=== PATIENT | male | born 1995 | race Two or more races ===

== ENCOUNTER 2025-02-27 12:51 | Emergency (ER) | payer MEDICAID, SELFPAY ==
[2025-02-27 12:52] VITALS: BMI 27.3
[2025-02-27 12:58] VITALS: BP 150/97; PULSE 96; RESP 18; TEMP 37.2; O2SAT 98
--- NOTE | 2025-02-27 12:58 | XR_ITS ---
Examination: Abdomen sonogram, Limited Date and time of exam: February 27, 2025 1321 hours INDICATIONS: Vomiting beginning 2 days ago Technique: Real-time floyd scale transabdominal sonographic images of the upper abdomen obtained. Findings: Cholelithiasis, gallbladder wall 0.3 cm no edema Common bile duct 0.3 cm Pancreatic head 2.7 cm Liver 21.3 cm fatty infiltration Normal hepatopedal portal venous flow Patent IVC IMPRESSION: Cholelithiasis, negative for cholecystitis Significant hepatomegaly, fatty liver
--- NOTE | 2025-02-27 12:58 | XR_ITS ---
Examination: CT abdomen and pelvis without contrast. Coronal 3-D reconstructions. Sagittal 2-D reconstructions. Date and time of exam:February 27, 2025 1310 hours INDICATIONS: Onset left lower abdominal pain and nausea beginning 3 days ago CTDI: vol (mGy): 8.26 DLP: (mGycm): 519 Technique: Axial images of the abdomen have been obtained, 3 mm slice thickness Intravenous contrast material has not been administered. Low dose protocols were performed. One or more of the following dose reduction techniques were used; automated exposure control, adjustment of the mA and/or KV according to patient size, use of iterative reconstruction technique. Findings: Marked hepatomegaly 25 cm with diffuse fatty infiltration Splenomegaly AP dimension 14.5 cm Contracted gallbladder with small gallstones No pancreatic or adrenal mass No renal or ureteral calculi No hydronephrosis Aorta normal size No bowel obstruction Normal appendix No diverticulitis No bladder mass or bladder calculi No prostatomegaly Intact osseous structures IMPRESSION: Significant hepatosplenomegaly Diffuse fatty infiltration throughout the liver Contracted gallbladder with cholelithiasis
--- NOTE | 2025-02-27 12:59 | PD.EDRME ---
Rapid Medical Screening Exam RME Arrival date/time: 02/27/25 12:51 29-year-old male presents emergency room today for complaint of abdominal pain nausea vomiting Chief Complaint: Abdominal Pain Time Seen by Provider: 02/27/25 12:58
[2025-02-27] MEDS: ONDANSETRON ODT 4 MG TABRAP PO (13:32)
[2025-02-27 13:48] LABS: Collection Type, Urine Clean Catch; Squamous Epithelial Cell,Urine 0 /hpf (0-5); WBC,Urine 0 /hpf (0-5)
[2025-02-27 13:48] LABS: Basophils # (Auto) 0.1 Thou/mm3 (0.0-0.2); Basophils % (Auto) 0 % (0-2.5); Eosinophils # (Auto) 0.2 Thou/mm3 (0.0-0.5); Eosinophils % (Auto) 1 % (0-10); Hematocrit 44.5 % (41.0-53.0); Hemoglobin 16.2 g/dL (13.5-16.0); Immature Granulocytes % (Auto) 0 % (0-0); Immature Granulocytes Auto 0.05 Thou/mm3 (0.00-0.00); Lymphocytes # (Auto) 1.4 Thou/mm3 (1.0-4.8); Lymphocytes % (Auto) 10 % (10-50); Mean Corpuscular HGB Conc 36.4 g/dl (31.0-37.0); Mean Corpuscular Hemoglobin 33.8 pg (25.0-35.0); Mean Corpuscular Volume 93 fL (80-100); Monocytes # (Auto) 0.9 Thou/mm3 (0.0-0.8); Monocytes % (Auto) 7 % (0-12); Neutrophils % (Auto) 81 % (37-80); Nucleated Red Blood Cell % 0 /100 WBC (0); Platelet Count 223 Thou/mm3 (140-440); RDW Standard Deviation 40.8 fL (35.1-43.9); White Blood Count 13.5 Thou/mm3 (3.8-10.6)
[2025-02-27 13:55] LABS: Bacteria,Urine Rare; Bilirubin,Urine Negative (Negative); Blood,Urine Negative (Negative); Clarity,Urine Clear (Clear/Hazy); Color,Urine Lt-Yellow (Lt Yel-Yel); Culture Indicated,Urine Not Indicated; Glucose, Urine Negative (Negative); Ketones,Urine Negative (Negative); Leukocyte Esterase,Urine Negative (Negative); Nitrite,Urine Negative (Negative); PH,Urine 6.5 (5.0-7.0); Protein,Urine Negative (Neg - Trace); RBC,Urine 2 /hpf (0-3); Specific Gravity,Urine 1.005 (1.001-1.035); Urobilinogen,Urine Negative mg/dL (0.0-1.0)
[2025-02-27 14:05] LABS: Alanine Aminotransferase 77 U/L (10-49); Albumin, Serum 4.4 gm/dL (3.5-5.0); Albumin/Globulin Ratio 1.4 (1.2-2.2); Alkaline Phosphatase 184 U/L (46-116); Anion Gap 18 (7-16); Aspartate Amino Transferase 147 U/L (0-34); BUN/Creatinine Ratio 8 Ratio (12-20); Bilirubin,Total 1.6 mg/dL (0.3-1.2); Blood Urea Nitrogen < 5 mg/dL (9-23); Carbon Dioxide 27.1 mMol/L (20.0-31.0); Chloride 97 mMol/L (98-107); Creatinine (Component) 0.6 mg/dL (0.6-1.3); Estimated Creatinine Clearance 178.9 mL/min (>60); Globulin 3.2 gm/dL (2.3-3.5); Glucose 116 mg/dL (74-106); Lipase 41 U/L (12-53); Osmolality,Calculated 281 (275-295); Potassium 3.8 mMol/L (3.4-5.1); Sodium 142 mMol/L (136-145); Total Protein 7.6 gm/dL (5.7-8.2); eGFR > 60 See Note
[2025-02-27 17:57] VITALS: BP 129/88; PULSE 91; RESP 18; O2SAT 99
--- NOTE | 2025-02-27 17:58 | EDNOTE_ITS ---
ED Abdominal Pain RME/HPI General Chief Complaint: Abdominal Pain Stated complaint: ABD. PAIN AND VOMITING Time seen by provider: 02/27/25 12:58 Arrival date/time: 02/27/25 12:51 29-year-old male with no known medical history presents to the emergency room with chief complaint of right upper quadrant abdominal pain and vomiting x 3 days Source: patient Mode of arrival: ambulatory Limitations: no limitations RME / HPI RME / HPI narrative: 02/27/25 12:51 29-year-old male presents emergency room today for complaint of abdominal pain nausea vomiting Related Data Previous Rx's ?Medication ?Instructions ?Recorded ondansetron 4 mg disintegrating 4 mg PO Q8H #10 tabs 0 06/26/24 tablet hydrocodone 5 mg-acetaminophen 325 1 tab PO BID PRN pa in #10 tabs 02/27/25 mg tablet ondansetron 4 mg disintegrating 4 mg PO Q8H PRN nausea and 02/27/25 tablet vomiting #14 tabs Allergies Allergy/AdvReac Type Severity Reaction Status Date / Time No Known Allergies Allergy Verified 02/27/25 12:54 Review of Systems Review of Systems Systems Reviewed: All systems reviewed, normal except as documented Constitutional Constitutional: Reports system reviewed and no additional complaints, except as documented, Denies fatigue, Denies fever(s), Denies headache(s) and Denies weakness Eyes Eyes: Reports system reviewed and no additional complaints, except as documented, Denies blurry vision and Denies change in vision ENT Ears, Nose, Mouth, and Throat: Reports system reviewed and no additional complaints, except as documented, Denies otalgia, Denies headache(s), Denies nasal congestion, Denies throat swelling and Denies vertigo Cardiovascular Cardiovascular: Reports system reviewed and no additional complaints, except as documented, Denies chest pain, Denies dyspnea and Denies dyspnea on exertion Respiratory Respiratory: Reports system reviewed and no additional complaints, except as documented, Denies chest congestion, Denies cough, Denies dyspnea, Denies dyspnea on exertion and Denies wheezing Gastrointestinal Gastrointestinal: Reports system reviewed and no additional complaints, except as documented, Reports abdominal pain, Reports cramping, Reports nausea and Denies vomiting Genitourinary Genitourinary: Reports system reviewed and no additional complaints, except as documented, Denies dysuria and Denies hematuria Musculoskeletal Musculoskeletal: Reports system reviewed and no additional complaints, except as documented and Denies back pain Integumentary/Breasts Skin/Breast: Reports system reviewed and no additional complaints, except as documented and Denies wounds Neurologic Neurologic: Reports system reviewed and no additional complaints, except as documented, Denies confusion, Denies headache(s), Denies lack of coordination, Denies vertigo and Denies weakness Psychiatric Psychiatric: Reports system reviewed and no additional complaints, except as documented, Denies anxiety, Denies confusion, Denies depression, Denies paranoia, Denies suicidal ideation and Denies tactile hallucinations Endocrine Endocrine: Reports system reviewed and no additional complaints, except as documented and Denies fatigue Hematologic/Lymphatic Hematologic/Lymphatic: Reports system reviewed and no additional complaints, except as documented and Denies lymphadenopathy Allergic/Immunologic Allergic/Immunologic: Reports system reviewed and no additional complaints, except as documented, Denies throat swelling, Denies urticaria and Denies wheezing Past Medical History Past Medical History CARDIAC: Negative Congestive Heart Failure RESPIRATORY: Negative Chronic Obstructive Pulmonary Disease (COPD) GENITOURINARY: Negative Renal Disease ENDOCRINE: Negative Diabetes Mellitus Type 1 or Diabetes Mellitus Type 2 Social History SMOKING STATUS: Never smoker ED Exam General Limitations: Present no limitations General appearance: Present alert and in no apparent distress Head Head exam: Present atraumatic Eye Eye exam: Present normal appearance, PERRL and EOMI ENT ENT exam: Present normal exam, normal oropharynx and mucous membranes moist Neck Neck exam: Present normal inspection, full ROM and trachea midline Chest Chest inspection: Present normal inspection and symmetric chest wall rise Respiratory Respiratory exam: Present normal lung sounds bilaterally Cardiovascular Cardiovascular exam: Present regular rate, normal rhythm and normal heart sounds Abdominal Exam Abdominal exam: Present soft, tenderness and normal bowel sounds; Absent distention, guarding or rebound Abdominal tenderness: Present RUQ and mild Extremities Exam Extremities exam: Present normal inspection and full ROM Back Exam Back exam: Present normal inspection and full ROM Neurological Exam Neurological exam: Present alert, oriented X3 and CN II-XII intact Psychiatric Psychiatric exam: Present normal affect and normal mood Skin Skin exam: Present warm, dry, intact and normal color Course Quality Measures none Orders Category Date Time Status CT abdomen pelvis wo con Stat Exams 02/27/25 12:58 Completed US gall bladder Stat Exams 02/27/25 12:58 Completed CBC Stat Lab 02/27/25 13:31 Completed Comprehensive Metabolic Panel Stat Lab 02/27/25 13:31 Completed Lipase Stat Lab 06/03/25 13:31 Completed UA, C/S IF [Urinalysis, C/S if Indicated] Stat Lab 02/27/25 13:42 Completed Ondansetron Odt [Zofran Odt] Med 02/27/25 12:58 Discontinued 4 mg PO X1 ONE Vital Signs Vital signs: Vital Signs Temperature 99.0 F 02/27/25 12:58 Pulse Rate 96 02/27/25 12:58 Respiratory Rate 18 02/27/25 12:58 Blood Pressure 150/97 H 02/27/25 12:58 Pulse Oximetry (%) 98 02/27/25 12:58 Oxygen Delivery Method Room Air 02/27/25 12:58 O2 saturation 98% within normal limits Abdominal Pain MDM MDM Narrative MDM Narrative:: 29-year-old male with no known medical history presents to the emergency room with chief complaint of right upper quadrant abdominal pain and vomiting x 3 days Patient is hemodynamically stable in no apparent distress Physical examination shows right upper quadrant abdominal pain and tenderness. During my reevaluation the patient does not have any tenderness anymore and there is a negative Lindo sign. Patient states his only symptom during my reevaluation is nausea. The patient has not vomited since he has been here. Ultrasound of the gallbladder was completed and shows cholelithiasis but no cholecystitis CBC CMP are within normal limits Patient was discharged and educated to follow-up with primary care provider in the next 24 to 48 hours and return to the emergency room for any evidence of worsening signs or symptoms Patient data External records reviewed:: [facility] previous records Clinical information provided by:: patient Social determinants that could affect healthcare access:: none Patient has the following chronic illnesses:: No chronic illness How is presenting disease/condition affected by chronic disease/condition?: no chronic disease Evaluation data The following diagnostics were reviewed and interpreted by me:: lab results and radiology exam(s) Lab and/or radiology exams considered but not ordered:: Labs and radiology exams considered and ordered Interpretation Summary: Ultrasound gallbladder-Findings: Cholelithiasis, gallbladder wall 0.3 cm no edema Common bile duct 0.3 cm Pancreatic head 2.7 cm Liver 21.3 cm fatty infiltration Normal hepatopedal portal venous flow Patent IVC IMPRESSION: Cholelithiasis, negative for cholecystitis Significant hepatomegaly, fatty liver Medications / Prescriptions Medications or Prescriptions considered but not ordered:: Medication given Medication administrations:: Medication Administration History Discontinued Medications Ondansetron HCl (Ondansetron Odt 4 Mg Tabrap) 4 mg PO X1 ONE; Protocol Stop: 02/27/25 12:59 Last Admin: 02/27/25 13:32 Dose: 4 mg Documented By: Medication given Consultations Consultation(s) initiated? (list below): No Diagnosis Differential diagnosis abdominal pain: abdominal pain, acute appendicitis, constipation, gastroenteritis, small bowel obstruction and other (Cholelithiasis/cholecystitis) Most likely diagnosis given after review of the tests above:: Cholelithiasis Admission Indicated Admission indicated?: not indicated Admission Request Was there a request for admission?: No Disposition Plan Disposition Plan: Discharge Discharge Attestation Discharge Attestation: The patient and all family members were given an opportunity to ask questions and understood the discharge instructions. Discharge instructions specifically effects, indications for sooner follow up or return to the emergency department, and the expected course of current diagnosis. Patient condition: Stable Discharge Plan Plan Patient Disposition: HOME (Self Care) Discharge Disposition comment: Stable Prescriptions/Referrals Prescriptions/Med Rec: New hydrocodone-acetaminophen 5-325 mg tablet 1 tab PO BID MDD 10mg PRN (Reason: pain) Qty: 10 0RF ondansetron 4 mg tablet,disintegrating 4 mg PO Q8H PRN (Reason: nausea and vomiting) Qty: 14 0RF No Action ondansetron 4 mg tablet,disintegrating 4 mg PO Q8H Qty: 10 0RF Referrals: No Primary/Family,Physician [Primary Care Provider] - In 1 week Problem List Clinical Impression: Cholelithiasis Patient/Caregiver Discharge Instructions Education Materials: ED Gallstones with Biliary Colic Additional Instructions: Por favor, consulte con fuentes m?dico de cabecera en las pr?ximas 24 a 48 horas. Fuentes ecograf?a de ves?cula biliar mostr? c?lculos biliares. Deber? consultar con fuentes m?dico de cabecera para que lo derive a un cirujano general para patty extirpaci?n ambulatoria de la ves?cula. Si observa alg?n empeoramiento de los signos o s?ntomas, acuda a urgencias de inmediato. El medicamento fue enviado a fuentes farmacia; rec?jalo y t?nguyen seg?n las indicaciones. Print Language: Peruvian Stand Alone Forms: Little Award Info., Patient Portal Info Letter PA/AMBULATORY CARE COORDINATOR Supervising Physician PA/AMBULATORY CARE COORDINATOR Supervising Physician: Dr Walker
== END 2025-02-27 17:58 | disposition home or self-care (01) ==
PROVIDERS: Nurse Practitioner Primary Care; Emergency Provider Emergency Medicine
DX: K80.20 Calculus of gallbladder without cholecystitis without obstruction (principal); K76.0 Fatty (change of) liver, not elsewhere classified
CPT/HCPCS: 36415; 74176; 76705; 80053; 81001; 83690; 85025; 99284; Q0162

== ENCOUNTER 2025-07-04 06:57 | Emergency (ER) | payer MEDICAID, SELFPAY ==
[2025-07-04 06:57] VITALS: BMI 31.8
--- NOTE | 2025-07-04 07:02 | EDNOTE_ITS ---
<Statement entered by Tonia Ambrocio MD - 07/18/25 14:08> I, Tonia Ambrocio MD, have reviewed the history, exam, and assessment of the patient. I have evaluated the patient independently and agree with the plan of care documented by [ ]. All diagnostic studies were reviewed and discussed. I confirm the diagnosis as documented by the Resident. I was present during the Medical Decision Making for this patient. The patient's plan of care was created between myself and the Resident and consistent with our discussion of the patient's case. ED General RME/HPI General Chief complaint: Nausea/Vomiting/Diarrhea Stated complaint: N/V/D Time Seen by Provider: 07/04/25 07:02 Arrival date/time: 07/04/25 06:57 RME / HPI RME / HPI narrative: Home is a 30 y/o male with PMHx of cholelithiasis comes in for an evaluation of abdominal pain, onset 2 days ago with associated nausea and vomiting, episodes of vomiting include 3 times, described as yellow, has happened to him before. Patient reports that his symptoms had been progressively worsening and he recently for the past 4 days have been drinking for 24 ounce beer cans. He has been drinking like this for about 10 years. He denies any bloody vomiting, or blood in his stool. He says that he was recently seen in February for similar symptoms. He does endorse a history of gallstones, however has not had surgery for it or has any abdominal surgeries as well. Says he works in the [employer]. He denies his abdominal pain rating to his back. Denies any drug use, however does endorse his drinking history. Is not a smoker. No other complaints at this time. Related Data Previous Rx's ?Medication ?Instructions ?Recorded ondansetron 4 mg disintegrating 4 mg PO Q8H #10 tabs 0 06/26/24 tablet hydrocodone 5 mg-acetaminophen 325 1 tab PO BID PRN pa in #10 tabs 02/27/25 mg tablet ondansetron 4 mg disintegrating 4 mg PO Q8H PRN nausea and 02/27/25 tablet vomiting #14 tabs ondansetron 4 mg disintegrating 4 mg PO Q8H PRN nausea and 07/04/25 tablet vomiting 2 weeks #14 tabs pantoprazole 40 mg tablet,delayed 40 mg PO QDAY 2 week s #14 tabs 07/04/25 release (Protonix) Allergies Allergy/AdvReac Type Severity Reaction Status Date / Time No Known Allergies Allergy Verified 02/27/25 12:54 Review of Systems Review of Systems Narrative Review of Systems: 12 point ROS reviewed and is otherwise negative unless stated directly in the HPI ED Exam Narrative Physical exam: General: AAOx3, in mild distress HEENT: Moist mucous membranes, conjunctiva clear, EOMI, PERRLA, Cardiovascular: S1, S2, radial pulses +2 bilat, RRR Pulmonary: CTAB bilat no cough, no wheezing GI: Mild tenderness to palpitation in epigastric and RUQ, no guarding, 3x3 linear area that appears scaly and erythematous that could represent contact dermaitits, no rigidity, rebound tenderness or distension Extremities: No presence of trace or pitting edema in lower extremities bilaterally, dorsalis pedis pulses +2 bilaterally Neuro: AAOx3, no focal motor or sensory deficits in the UE or LE bilat Psych: Good judgement, thought and behavior Course Quality Measures none Orders Category Date Time Status EKG (ED ONLY) *Do not use* NOW Care 07/04/25 07:19 Completed Insert IV NOW Care 07/04/25 07:19 Active Miscellaneous Nursing Order NOW Care 07/04/25 08:55 Active EKG (ED Only) Stat Exams 07/04/25 07:19 Draft US abdomen limited Stat Exams 07/04/25 07:34 Completed XR abdomen 1V Stat Exams 07/04/25 09:29 Completed Alcohol, Blood Medical Stat Lab 07/04/25 07:45 Completed CBC Stat Lab 07/04/25 07:45 Completed CMP [Comprehensive Metabolic Panel] Stat Lab 07/04/25 07:45 Completed Drug Screen,Urine Stat Lab 07/04/25 07:37 Completed INR [Prothrombin Time with INR] Stat Lab 07/04/25 07:45 Completed Lactic Acid [Lactate (Lactic Acid)] Stat Lab 07/04/25 07:45 Completed Lipase Stat Lab 07/04/25 07:45 Completed Mag [Magnesium] Stat Lab 07/04/25 07:45 Completed PTT [Partial Thromboplastin Time] Stat Lab 07/04/25 07:45 Completed Urinalysis, C/S if Indicated Stat Lab 07/04/25 07:37 Completed Morphine* Inj Med 07/04/25 07:18 Discontinued 4 mg IVP X1 ONE Ondansetron Inj [Zofran Inj] Med 07/04/25 08:31 Discontinued 4 mg IVP X1 ONE Pantoprazole Inj [Protonix Inj] Med 07/04/25 08:53 Discontinued 40 mg IVP X1 ONE Vital Signs Vital signs: Vital Signs Temperature 97.5 F 07/04/25 07:03 Pulse Rate 96 07/04/25 07:03 Respiratory Rate 17 07/04/25 07:03 Blood Pressure 159/93 H 07/04/25 07:03 Pulse Oximetry (%) 97 07/04/25 07:03 Oxygen Delivery Method Room Air 07/04/25 07:03 Discharge Plan Plan Patient Disposition: HOME (Self Care) Prescriptions/Referrals Prescriptions/Med Rec: New pantoprazole [Protonix] 40 mg tablet,delayed release (DR/EC) 40 mg PO QDAY 14 Days Qty: 14 0RF Rx Instructions: Take one tablet by mouth before breakfast ondansetron 4 mg tablet,disintegrating 4 mg PO Q8H PRN (Reason: nausea and vomiting) 14 Days Qty: 14 0RF Rx Instructions: Dissolve one tablet by mouth up to three times a day as needed No Action ondansetron 4 mg tablet,disintegrating 4 mg PO Q8H Qty: 10 0RF hydrocodone-acetaminophen 5-325 mg tablet 1 tab PO BID MDD 10mg PRN (Reason: pain) Qty: 10 0RF ondansetron 4 mg tablet,disintegrating 4 mg PO Q8H PRN (Reason: nausea and vomiting) Qty: 14 0RF Referrals: No Primary/Family,Physician [Primary Care Provider] - In 1 week Problem List Clinical Impression: Gastritis Patient/Caregiver Discharge Instructions Additional Instructions: Discharge instructions Follow-up with your PCP within 1 week Take your Protonix as prescribed Use Zofran as needed for nausea and vomiting Avoid drinking EtOH Return to ED if your symptoms worsen or return Instrucciones para el tony: Consulte con [facility]son m?dico de cabecera en el plazo de patty semana [place] Protonix seg?n lo prescrito Use Zofran seg?n sea necesario para las n?useas y los v?mitos Evite beber EtOH Regrese a urgencias si los s?ntomas empeoran o reaparecen Print Language: Georgian Stand Alone Forms: Little Award Info., Patient Portal Info Letter MDM Narrative MDM hospital course (for use when minimal MDM required): 0724: Ordered imaging, IV pain morphine, basic labs, EKG, lipase, and US abdomen 0832: Reviewed ultrasound which shows Itera lithiasis, however no cholecystitis and also shows moderate hepatomegaly. Gave Zofran for nausea, pending labs. 0853: Labs reviewed, platelets 99, T. bili 2.8, AST 52, ALT 28, ALP 121. His liver enzyme markers have been elevated in the past. Due to him not having severe abdominal pain, and his main complaint is nausea, patient could be having some gastritis related to alcohol. Will see how patient tolerates a Zofran and perform oral trial shortly. Will also give Protonix IV. 1234: X-Ray plain film reviewed, no free air. Pt is medically cleared for discharge. As pt has had workup for his gallstones in the past with CT, US and MRCP, pt will need to f/u outpatient for further consideration of cholecystectomy. However, at this time, pt's symptoms are likely related to gastritis 2/2 EtOH use. EKG Interpretation EKG #1: EKG Interpretation: Normal sinus rhythm, heart rate of 90, QT 347, no ST changes. Medication Administration(s) Medication Administration History Discontinued Medications Morphine Sulfate (Morphine Sulf Inj 4 Mg/Ml Vial) 4 mg IVP X1 ONE Stop: 07/04/25 07:19 Last Admin: 07/04/25 09:37 Dose: 4 mg Documented By: GM Ondansetron HCl (Ondansetron Inj 2 Mg/Ml Inj 2 Ml) 4 mg IVP X1 ONE; Protocol Stop: 07/04/25 08:32 Last Admin: 07/04/25 09:36 Dose: 4 mg Documented By: GM Pantoprazole Sodium (Pantoprazole Inj 40 Mg Vial) 40 mg IVP X1 ONE Stop: 07/04/25 08:54 Last Admin: 07/04/25 09:37 Dose: 40 mg Documented By: GM Diagnosis Diagnoses ruled out and/or further discussions: Gastritis, Pancreatitis, Cholecystitis
[2025-07-04 07:03] VITALS: BP 159/93; PULSE 96; RESP 17; TEMP 36.4; O2SAT 97
--- NOTE | 2025-07-04 07:19 | EKG_ITS ---
[facility] Test Date: 2025-07-04 Pat Name: JOSLYN PITTS Department: Room: - Gender: Male [employer] Tester: : 1995 Requested By: Luis Harper Order Number: [id number] Reading MD: Luis Harper Measurements Intervals [place] Rate: 90 P: 23 NM: 139 QRS: 84 QRSD: 83 T: 38 QT: 347 QTc: 425 Interpretive Statements SINUS RHYTHM No previous ECG available for comparison /store/S0/[id number]/ecg/[id number].pdf
--- NOTE | 2025-07-04 07:34 | XR_ITS ---
Examination: Abdomen sonogram, Limited Date and time of exam: July 04, 2025, 0750 hours INDICATIONS: Upper abdominal pain nausea vomiting diarrhea beginning 2 days ago. Technique: Real-time floyd scale transabdominal sonographic images of the upper abdomen obtained. Findings: Multiple gallstones Gallbladder wall 0.3 cm Common bile duct 0.2 cm Pancreatic head 2.3 cm Liver 19.8 cm fatty infiltration no focal liver lesions Normal hepatopetal portal venous flow Patent IVC IMPRESSION: Cholelithiasis, negative for cholecystitis Moderate hepatomegaly
[2025-07-04 07:42] LABS: Collection Type, Urine Catheter; Squamous Epithelial Cell,Urine 0 /hpf (0-5)
[2025-07-04 07:54] LABS: Amphetamine/Methamp Scrn,U Negative (Negative); Barbiturate Screen,Urine Negative (Negative); Benzodiazepines Screen,Urine Negative (Negative); Benzoylecgonine Screen, Ur Negative (Negative); Fentanyl Screen,Urine Negative (Negative); Opiate Screen,Urine Negative (Negative); THC Screen,Urine Negative (Negative)
[2025-07-04 08:04] LABS: Lactate (Lactic Acid) 1.9 mMol/L (0.4-2.0)
[2025-07-04 08:09] LABS: Basophils # (Auto) 0.0 Thou/mm3 (0.0-0.2); Basophils % (Auto) 1 % (0-2.5); Eosinophils # (Auto) 0.1 Thou/mm3 (0.0-0.5); Eosinophils % (Auto) 3 % (0-10); Hematocrit 42.5 % (41.0-53.0); Hemoglobin 15.4 g/dL (13.5-16.0); Immature Granulocytes Auto 0.02 Thou/mm3 (0.00-0.00); Lymphocytes # (Auto) 1.1 Thou/mm3 (1.0-4.8); Lymphocytes % (Auto) 22 % (10-50); Mean Corpuscular HGB Conc 36.2 g/dl (31.0-37.0); Mean Corpuscular Hemoglobin 32.6 pg (25.0-35.0); Mean Corpuscular Volume 90 fL (80-100); Monocytes # (Auto) 0.4 Thou/mm3 (0.0-0.8); Monocytes % (Auto) 8 % (0-12); Neutrophils # (Auto) 3.3 Thou/mm3 (1.8-7.7); Neutrophils % (Auto) 66 % (37-80); Nucleated Red Blood Cell # 0.00 Thou/mm3 (0.00-0.00); Nucleated Red Blood Cell % 0 /100 WBC (0); Platelet Count 99 Thou/mm3 (140-440); RDW Standard Deviation 38.7 fL (35.1-43.9); Red Blood Count 4.72 Miln/mm3 (4.50-5.90); White Blood Count 5.0 Thou/mm3 (3.8-10.6)
[2025-07-04 08:10] LABS: Bilirubin,Urine Negative (Negative); Blood,Urine Negative (Negative); Clarity,Urine Clear (Clear/Hazy); Color,Urine Lt-Yellow (Lt Yel-Yel); Culture Indicated,Urine Not Indicated; Glucose, Urine Negative (Negative); Ketones,Urine Negative (Negative); Leukocyte Esterase,Urine Negative (Negative); Nitrite,Urine Negative (Negative); PH,Urine 7.0 (5.0-7.0); Protein,Urine Negative (Neg - Trace); RBC,Urine 2 /hpf (0-3); Specific Gravity,Urine 1.008 (1.001-1.035); Urobilinogen,Urine Negative mg/dL (0.0-1.0); WBC,Urine 1 /hpf (0-5)
[2025-07-04 08:35] LABS: Alanine Aminotransferase 28 U/L (10-49); Albumin, Serum 4.4 gm/dL (3.5-5.0); Albumin/Globulin Ratio 1.2 (1.2-2.2); Alcohol, Blood Medical < 3.0 mg/dL (0-10.0); Alkaline Phosphatase 121 U/L (46-116); Anion Gap 11 (7-16); Aspartate Amino Transferase 52 U/L (0-34); BUN/Creatinine Ratio 8 Ratio (12-20); Bilirubin,Total 2.8 mg/dL (0.3-1.2); Blood Urea Nitrogen < 5 mg/dL (9-23); Calcium 9.2 mg/dL (8.3-10.6); Calcium (Corrected) 9.2 mg/dL (8.5-10.1); Carbon Dioxide 26.0 mMol/L (20.0-31.0); Chloride 104 mMol/L (98-107); Creatinine (Component) 0.6 mg/dL (0.6-1.3); Estimated Creatinine Clearance 169.6 mL/min (>60); Globulin 3.6 gm/dL (2.3-3.5); Glucose 107 mg/dL (74-106); Lipase 52 U/L (12-53); Magnesium 1.9 mg/dL (1.6-2.6); Osmolality,Calculated 278 (275-295); Potassium 3.9 mMol/L (3.4-5.1); Sodium 141 mMol/L (136-145); Total Protein 8.0 gm/dL (5.7-8.2); eGFR > 60 See Note
--- NOTE | 2025-07-04 09:29 | XR_ITS ---
Examination: Abdomen AP single view Technique: AP portable supine abdomen, single view Exam date and time: July 04, 2025, 11:22 a.m. INDICATIONS: Abdominal pain nausea vomiting today FINDINGS: Mild air and stool throughout the colon Mild small bowel ileus No free air Suspicious for small gallstones IMPRESSION: Mild small bowel ileus Suspicious for gallstones, recommend hepatobiliary sonography follow-up
[2025-07-04] MEDS: ONDANSETRON INJ 2 MG/ML INJ 2 ML 4 MG IVP (09:36)
[2025-07-04] MEDS: MORPHINE SULF INJ 4 MG/ML VIAL IVP (09:37)
[2025-07-04 09:39] VITALS: BP 125/80; PULSE 84; RESP 17; TEMP 36.8; O2SAT 95
[2025-07-04 09:56] LABS: INR 1.2 (0.9-1.3); Partial Thromboplastin Time 28.9 Seconds (22.0-36.0); Prothrombin Time 12.4 Seconds (9.0-12.2)
--- NOTE | 2025-07-04 12:00 | PC.NURSE ---
PT GIVEN APPLE JUICE FOR PO TRIAL. PT ABLE TO DRINK JUICE WITH NO DIFFICULTY. PT DENIED N/V AT THIS TIME. PT PASSED PO CHALLENGE AT THIS TIME.
[2025-07-04 13:00] VITALS: BP 124/86; PULSE 77; RESP 16; TEMP 36.9; O2SAT 96
== END 2025-07-04 13:42 | disposition home or self-care (01) ==
PROVIDERS: Emergency Provider Emergency Medicine
DX: K29.70 Gastritis, unspecified, without bleeding (principal); K80.20 Calculus of gallbladder without cholecystitis without obstruction; R16.0 Hepatomegaly, not elsewhere classified
CPT/HCPCS: 36415; 74018; 76705; 80053; 80307; 80320; 81001; 83605; 83690; 83735; 85025; 85610; 85730; 93005; 96374; 96375; 99284; J2270; J2405; J2470; G0480